=== PATIENT | female | born 1940 | race American Indian/Alaskan Native ===

== ENCOUNTER 2017-07-05 18:21 | Inpatient (IN) | payer MEDICARE ==
--- NOTE | 2017-07-05 16:10 | Anesthesia Consultation ---
Anesthesia Consult and Med Hx Date of service: 07/05/17 - Airway Anesthetic Teeth Evaluation: Good, Dentures (upper ), Partials (lower) ROM Head & Neck: Adequate Mental/Hyoid Distance: Adequate Mallampati Class: Class I Intubation Access Assessment: Probably Good - Pulmonary Exam CTA: Yes - Cardiac Exam Cardiac Exam: RRR - Pre-Operative Health Status ASA Pre-Surgery Classification: ASA2 Proposed Anesthetic Plan: General - Pulmonary Hx Smoking: No (quit 10 years ago) - Cardiovascular System Hx Hypertension: Yes - Hematic Hx Sickle Cell Disease: Yes (trait) - Additional Comments Anesthesia Medical History Comments: prediabetes
--- NOTE | 2017-07-05 16:11 | Anesthesia Day of Surgery ---
Anesthesia Day of Surgery - Day of Surgery Patient Examined: Yes Patient H&P Reviewed: Yes Patient is NPO: Yes
--- NOTE | 2017-07-05 16:40 | Post Operative Note ---
Date of procedure: 07/05/17 Pre-op diagnosis: + cytology bladder tumors heme Post-op diagnosis: same Findings: as above Procedure: cysto biopsies turbt Anesthesia: GETA Surgeon: SHAHANA BECKWITH Estimated blood loss: minimal Pathology: list (bladder) Specimen disposition: to lab Condition: stable Disposition: PACU
[~2017-07-05 18:21] MED LIST: AMBIEN PO PRN; ANCEF/STERILE WATER 2 GM/20 ML 2 GM/20 ML SYRINGE IV NR; ANCEF/STERILE WATER 2 GM/20 ML IV NR; DECADRON ONE; DILAUDID ONE; DIPRIVAN 10 MG/ML IV ONE; NACL 0.9% 1000 ML 1,000 ML IV SCH; NACL 0.9% IR ONE; NACL 0.9% IR PRN; PERCOCET 5/325 PO PRN; SORBITOL-MANNITOL IRRIG IR ONE; WATER FOR IRRIG STERILE IR ONE; XYLOCAINE MPF 2% ONE; ZOFRAN IV PRN; ZOFRAN ONE
[2017-07-05] MEDS ORDERED: LASIX ONE (18:22)
[2017-07-05] MEDS ORDERED: D5W/0.45% NACL/KCL 20 MEQ 20 MEQ/1,000 ML BAG IV SCH (19:00)
--- NOTE | 2017-07-05 19:02 | Post Anesthesia Evaluation ---
- Post Anesthesia Evaluation Patient Participated: Yes Airway Patent: Yes Stable Respiratory Function: Yes Nausea/Vomiting: No Temp > 96.8F: Yes Pain Manageable: Yes Adequeate Hydration: Yes Anesthesia Complications: No
--- NOTE | 2017-07-05 20:31 | Operative Report ---
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 Pending pathology. PROCEDURE: Cystoscopy, multiple bladder biopsies, resection of tumor with cold cup because it was sessile and irregular and necrotic and fulguration of bleeding sites and retrograde. SURGEON: Dr. Mittal. ANESTHESIA: General. FINDINGS: This is a woman, who presented with gross hematuria yesterday. Unfortunately, she lost her [id number] while she was in the office and she wants to go next week, so we brought her in for cystoscopy. She has 2 lesions in the bladder noted on CT scan. She now presents for treatment. DESCRIPTION OF PROCEDURE: The patient was brought to the operating room and placed on the operating table. Following induction of anesthesia, placed in lithotomy position, prepped and draped in usual sterile fashion. Bimanual exam showed no fixed masses. She had a prominent cystocele with the bladder dropped well below the pubic ramus. It was hard to do retrogrades because of the angle, but retrogrades were obtained. There were no persistent filling defects. The bladder was filled with intermittent bleeding mostly from the tumor at the dome. We could see the bleeding vessels. Random biopsies were done at erythematous patches in the lateral wall and posterior wall. These were cauterized. The tumor was necrotic. It was not papillary. It was not on a stalk. It was broad-based and it was too dangerous to resect it at the dome. The bladder was thin as it was. We did multiple biopsies, tried to get as much of the tumor we could at the dome and posterior wall. The patient tolerated the procedure well. The area was cauterized. A Kendrick drip was started. It was clear after all the tumor was cauterized with the ball electrode. The patient tolerated the procedure well. Family notified, brought to recovery in stable condition. JOB# [id number] NAVNEET/CHANDLER
[2017-07-05 20:51] LABS: Anion Gap 18 mmol/L; BUN/Creatinine Ratio 21; Blood Urea Nitrogen 17 mg/dL (7-17); Calcium 9.4 mg/dL (8.4-10.2); Carbon Dioxide 23 mmol/L (22-30); Chloride 101.1 mmol/L (98-107); Glucose 125 mg/dL (65-100); Potassium 4.1 mmol/L (3.6-5.0); Sodium 138 mmol/L (137-145)
[2017-07-05] MEDS ORDERED: ZOCOR PO SCH (22:00)
[2017-07-05] MEDS: NACL 0.9% IR SCH (22:24)
[2017-07-06] MEDS ORDERED: ANCEF/NS 1 GM/50 ML 1 GM/50 ML BAG IV SCH
[2017-07-06] MEDS: NACL 0.9% IR SCH (02:23)
[2017-07-06 04:39] LABS: Hematocrit 38.2 % (30.3-42.9); Hemoglobin 12.6 gm/dl (10.1-14.3); Mean Corpuscular HGB Conc 33 % (30-34); Mean Corpuscular Hemoglobin 29 pg (28-32); Mean Corpuscular Volume 89 fl (79-97); Red Cell Distribution Width 13.1 % (13.2-15.2)
[2017-07-06 04:46] LABS: White Blood Count 8.6 K/mm3 (4.5-11.0)
[2017-07-06 05:02] LABS: Anion Gap 18 mmol/L; BUN/Creatinine Ratio 21; Blood Urea Nitrogen 17 mg/dL (7-17); Calcium 9.4 mg/dL (8.4-10.2); Carbon Dioxide 24 mmol/L (22-30); Chloride 103.5 mmol/L (98-107); Glucose 131 mg/dL (65-100); Potassium 4.8 mmol/L (3.6-5.0); Sodium 141 mmol/L (137-145)
[2017-07-06 05:30] LABS: Basophils % (Manual) 0 % (0.0-1.8); Blastocytes % (Manual) 0 %; Eosinophils % (Manual) 0 % (0.0-4.3); Total Cells Counted Percent 0
[2017-07-06 05:31] LABS: Diff Status Complete; Platelet Clumps Few; Platelet Estimate Consistent w Auto
[2017-07-06 05:35] LABS: Platelet Count 199 K/mm3 (140-440)
--- NOTE | 2017-07-06 08:12 | Progress Note ---
Assessment and Plan agressive sessile bladder tumor was actively bleeding await path home with catheter Subjective Date of service: 07/06/17 Principal diagnosis: bladder tumor Objective - Constitutional Vitals: Vital Signs - 12hr 07/05/17 07/05/17 07/06/17 20:20 21:45 01:10 Temperature 97.2 F L 97.2 F L Pulse Rate 91 H 74 75 Respiratory 20 20 Rate Blood Pressure 111/79 123/62 Blood Pressure 111/79 [Left] O2 Sat by Pulse 100 100 100 Oximetry 07/06/17 07/06/17 07/06/17 01:11 02:32 05:18 Temperature 97.3 F L 97.8 F Pulse Rate 75 62 77 Respiratory 18 18 Rate Blood Pressure 129/61 Blood Pressure 123/62 [Left] O2 Sat by Pulse 100 100 100 Oximetry 07/06/17 07/06/17 05:19 05:57 Temperature 97.8 F Pulse Rate 70 71 Respiratory 18 Rate Blood Pressure 129/61 Blood Pressure 129/61 [Left] O2 Sat by Pulse 100 100 Oximetry General appearance: Present: no acute distress - Neck Neck: supple - Respiratory Respiratory effort: normal Extremities: no ischemia - Gastrointestinal General gastrointestinal: Present: soft, non-tender - Labs CBC & Chem 7: 07/06/17 04:02 07/06/17 04:02 Labs: Abnormal lab results 07/05/17 07/06/17 07/06/17 Range/Units 19:37 04:02 04:02 RDW 13.1 L (13.2-15.2) % Seg Neuts % (Manual) 91.0 H (40.0-70.0) % Lymphocytes % (Manual) 8.0 L (13.4-35.0) % Seg Neutrophils # Man 7.8 H (1.8-7.7) K/mm3 Lymphocytes # (Manual) 0.7 L (1.2-5.4) K/mm3 Glucose 125 H 131 H (65-100) mg/dL
--- NOTE | 2017-07-06 08:14 | Discharge Summary ---
Short Stay Discharge Plan Activity: other (no straining ) Weight Bearing Status: Full Weight Bearing Diet: low fat, low cholesterol Special Instructions: other ([facility] ) Durable Medical Equipment Needed Upon Discharge: other ([facility] ) Follow up with: JEWEL FANG PA [Primary Care Provider] - 7 Days SHAHANA BECKWITH MD [Staff Physician] - 7 Days
[2017-07-06 08:52] VITALS: BP 139/80
[2017-07-06] MEDS ORDERED: COZAAR PO SCH (10:00)
[2017-07-06] MEDS ORDERED: LOVASTATIN 10 MG PO SCH (10:00)
== END 2017-07-06 10:00 | disposition home or self-care (01) | DRG 670 ==
LOC: OR 18:21 → 3B-SURG 19:35
PROVIDERS: ADMIT Urology; ATTEND Urology
PROC: 0TBB8ZX Excision of Bladder, Via Natural or Artificial Opening Endoscopic, Diagnostic (ICD-10-PCS; principal; 2017-07-05)
PROC: BT14YZZ Fluoroscopy of Kidneys, Ureters and Bladder using Other Contrast (ICD-10-PCS; 2017-07-05)
DX: D49.4 Neoplasm of unspecified behavior of bladder (principal); R31.0 Gross hematuria; I10 Essential (primary) hypertension; Z91.041 Radiographic dye allergy status; Z87.891 Personal history of nicotine dependence
CPT/HCPCS: 36415; 80048; 85007; 85025; 94760; A4217; C1758; J0690; J1100; J1170; J1940; J2405; J2704; J7030

== ENCOUNTER 2021-10-16 21:16 | Emergency (ER) | payer MEDICARE ==
[2021-10-16] MEDS ORDERED: SODIUM CHLORIDE 0.9% 1000 ML 1,000 ML IV ONE (21:46)
[2021-10-16 22:14] LABS: Basophils % (Auto) 0.5 % (0.0-1.8); Eosinophils % (Auto) 0.5 % (0.0-4.3); Hematocrit 36.2 % (30.3-42.9); Hemoglobin 11.9 gm/dl (10.1-14.3); Lymphocytes # (Auto) 1.2 K/mm3 (1.2-5.4); Lymphocytes % (Auto) 12.7 % (13.4-35.0); Mean Corpuscular HGB Conc 33 % (30-34); Mean Corpuscular Volume 89 fl (79-97); Monocytes # (Auto) 0.5 K/mm3 (0.0-0.8); Monocytes % (Auto) 5.9 % (0.0-7.3); Platelet Count 213 K/mm3 (140-440); Red Blood Count 4.06 M/mm3 (3.65-5.03)
[2021-10-16 22:23] LABS: Calcium 9.5 mg/dL (8.4-10.2)
[2021-10-16 23:46] LABS: Bacteria,Urine 2+ /HPF (Negative); Bilirubin,Urine NEG (Negative); Blood,Urine MOD (Negative); Color,Urine Yellow (Yellow); Urobilinogen,Urine < 2.0 mg/dL (<2.0)
[2021-10-16 23:48] LABS: WBC,Urine > 182.0 /HPF (0.0-6.0)
[2021-10-16] MEDS ORDERED: cefTRIAXone/NS 1 GM/50 ML 1 GM/50 ML BAG IV ONE (23:50)
[2021-10-17 00:40] VITALS: BP 138/51
--- NOTE | 2021-10-17 00:41 | Emergency Department Report ---
ED Female HPI - General Chief complaint: Urogenital-Female Stated complaint: POSSIBLE UTI Time Seen by Provider: 10/16/21 21:45 Source: EMS Mode of arrival: Stretcher Limitations: No Limitations - History of Present Illness MD Complaint: dysuria -: Gradual Severity scale (0 -10): 2 Quality: dull Consistency: constant - Related Data Sexually active: No Home Medications Medication Instructions Recorded Confirmed Last Taken Losartan [Cozaar] 25 mg PO DAILY 07/05/17 03/18/18 07/05/17 09:00 Lovastatin [Altoprev] 10 mg PO DAILY 07/05/17 03/18/18 07/04/17 20:00 Mvit,Calcium,Iron,Mins/A.acids 1 each PO DAILY 07/05/17 03/18/18 07/04/17 09:00 [K-Cordova Double Strength Capsule] Biotin 600 mcg PO QDAY 03/18/18 03/18/18 Unknown Previous Rx's Medication Instructions Recorded Last Taken Type levoFLOXacin [Levaquin TAB] 500 mg PO QDAY #5 tablet 03/21/18 Unknown Rx Ciprofloxacin HCl 500 mg PO BID #14 10/17/21 Unknown Rx Allergies Allergy/AdvReac Type Severity Reaction Status Date / Time Iodinated Contrast Media AdvReac Rash Verified 03/18/18 17:58 [Iodinated Contrast- Oral and IV Dye] IV DYE AdvReac Itching Uncoded 03/18/18 17:58 ED Review of Systems ROS: Stated complaint: POSSIBLE UTI Other details as noted in HPI Constitutional: denies: chills, fever Eyes: denies: eye pain, eye discharge, vision change ENT: denies: ear pain, throat pain Respiratory: denies: cough, shortness of breath, wheezing Cardiovascular: denies: chest pain, palpitations Endocrine: no symptoms reported Gastrointestinal: denies: abdominal pain, nausea, diarrhea Genitourinary: denies: urgency, dysuria, discharge Musculoskeletal: denies: back pain, joint swelling, arthralgia Skin: denies: rash, lesions Neurological: denies: headache, weakness, paresthesias Psychiatric: denies: anxiety, depression Hematological/Lymphatic: denies: easy bleeding, easy bruising ED Past Medical Hx - Past Medical History Previous Medical History?: No Hx Hypertension: Yes Hx Sickle Cell Disease: Yes (TRAIT) Hx Arthritis: No Additional medical history: Bladder CA, - Surgical History Past Surgical History?: No Hx Breast Surgery: Yes (BIOPSY LEFT) Additional Surgical History: Urostomy bag placed Sep 2017. Bilateral ureteral stents - Social History Smoking Status: Former Smoker - Medications Home Medications: Home Medications Medication Instructions Recorded Confirmed Last Taken Type Losartan [Cozaar] 25 mg PO DAILY 07/05/17 03/18/18 07/05/17 09:00 History Lovastatin [Altoprev] 10 mg PO DAILY 07/05/17 03/18/18 07/04/17 20:00 History Mvit,Calcium,Iron,Mins/A.acids 1 each PO DAILY 07/05/17 03/18/18 07/04/17 09:00 History [K-Cordova Double Strength Capsule] Biotin 600 mcg PO QDAY 03/18/18 03/18/18 Unknown History levoFLOXacin [Levaquin TAB] 500 mg PO QDAY #5 tablet 03/21/18 Unknown Rx Ciprofloxacin HCl 500 mg PO BID #14 10/17/21 Unknown Rx ED Physical Exam - General Limitations: No Limitations General appearance: alert, in no apparent distress - Head Head exam: Present: atraumatic, normocephalic - Eye Eye exam: Present: normal appearance - ENT ENT exam: Present: mucous membranes moist - Neck Neck exam: Present: normal inspection - Respiratory Respiratory exam: Present: normal lung sounds bilaterally. Absent: respiratory distress - Cardiovascular Cardiovascular Exam: Present: regular rate, normal rhythm. Absent: systolic murmur, diastolic murmur, rubs, gallop - GI/Abdominal GI/Abdominal exam: Present: soft, normal bowel sounds - Extremities Exam Extremities exam: Present: normal inspection - Back Exam Back exam: Present: normal inspection - Neurological Exam Neurological exam: Present: alert, oriented X3 - Psychiatric Psychiatric exam: Present: normal affect, normal mood - Skin Skin exam: Present: warm, dry, intact, normal color. Absent: rash ED Course Vital Signs 10/16/21 21:55 Temperature 100.2 F H Pulse Rate 101 H Respiratory 16 Rate Blood Pressure 130/84 [Left] O2 Sat by Pulse 98 Oximetry - Reevaluation(s) Reevaluation #1: 10/17/21 00:40 ua shwoed uti abx given vss, no distress in her [facility] ED Medical Decision Making - Lab Data Result diagrams: 10/16/21 21:49 10/16/21 21:49 Critical care attestation.: If time is entered above; I have spent that time in minutes in the direct care of this critically ill patient, excluding procedure time. ED Disposition Clinical Impression: UTI (urinary tract infection) Disposition: HOME / SELF CARE / HOMELESS Is pt being admited?: No Does the pt Need Aspirin: No Condition: Stable Instructions: Urinary Tract Infection, Adult, [id number] Prescriptions: Ciprofloxacin HCl 500 mg PO BID #14 Referrals: PRIMARY CARE, [Primary Care Provider] - 3-5 Days
[2021-10-17] MEDS ORDERED: ACETAMINOPHEN 500 MG TAB PO ONE (00:42)
== END 2021-10-17 02:26 | disposition home or self-care (01) ==
LOC: ED 21:16
DX: N39.0 Urinary tract infection, site not specified (principal); I10 Essential (primary) hypertension; D57.1 Sickle-cell disease without crisis; Z98.890 Other specified postprocedural states; Z87.891 Personal history of nicotine dependence; Z91.041 Radiographic dye allergy status
CPT/HCPCS: 36415; 80048; 81001; 83690; 85025; 96360; 99284; J0696; J7030; Q0162